=== PATIENT | female | born 1970 | race Caucasian/White ===

== ENCOUNTER 2018-11-11 13:30 | Emergency (ER) | payer OTHER ==
[~2018-11-11] VITALS: Wt 65.4 kg
[2018-11-11 13:34] VITALS: BP 137/83; PULSE 103; RESP 20
[2018-11-11] MEDS ORDERED: ONDANSETRON (ODT) 4 MG TAB ODT STA (14:38)
[2018-11-11] MEDS ORDERED: NAPR-985 PO (14:39)
[2018-11-11] MEDS ORDERED: HYDR-4011 PO (14:39)
[2018-11-11] MEDS ORDERED: CYCL10TA7 PO (14:39)
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
[2018-11-11] MEDS ORDERED: HYDROCODONE/APAP (5/325) TAB PO ONE (15:00)
== END 2018-11-11 15:00 | disposition home or self-care (01) ==
LOC: FTE 13:30
DX: M54.9 Dorsalgia, unspecified (principal)
CPT/HCPCS: Z7610 ×2; 99283